=== PATIENT | female | born 1955 | race African-American/Black ===

== ENCOUNTER 2018-12-25 10:10 | Day surgery (SDC) | payer OTHER ==
[2018-12-23 15:10] VITALS: BMI 40.9
[~2018-12-25 10:10] MED LIST: ACETAMINOPHEN 325 MG TABLET (FP) PO PRN; CYCLOPENTOLATE HCL 1% OPHTH SOLN 2 ML BOTTLE OP SCH; KETOROLAC TROMETHAMINE 0.5% EYE DROP 1 DROP DROPS OP SCH; OFLOXACIN 0.3% OPHTHALMIC SOLUTION 5 ML BOTTLE OP SCH; PHENYLEPHRINE 2.5% OPHTH SOLN 15 ML BOTTLE OP SCH; TROPICAMIDE 1% OPHTH SOLN 15 ML BOTTLE OP SCH
[2018-12-25] MEDS ORDERED: CYCLOPENTOLATE HCL 1% OPHTH SOLN 2 ML BOTTLE ONE (11:03)
[2018-12-25] MEDS ORDERED: KETOROLAC TROMETHAMINE 0.5% EYE DROP 1 DROP DROPS ONE (11:03)
[2018-12-25] MEDS ORDERED: OFLOXACIN 0.3% OPHTHALMIC SOLUTION 5 ML BOTTLE ONE (11:03)
[2018-12-25] MEDS ORDERED: PHENYLEPHRINE 2.5% OPHTH SOLN 15 ML BOTTLE ONE (11:03)
[2018-12-25] MEDS ORDERED: TROPICAMIDE 1% OPHTH SOLN 15 ML BOTTLE ONE (11:03)
[2018-12-25] MEDS ORDERED: LIDOCAINE HCL/PF 2% SDV 5ML VIAL ONE (12:33)
[2018-12-25] MEDS ORDERED: PROPOFOL 20 ML ONE (12:49)
[2018-12-25] MEDS ORDERED: LIDOCAINE HCL/PF 2% SDV 5ML VIAL INF ONE (13:05)
[2018-12-25] MEDS ORDERED: POVIDONE-IODINE 5% OPHTHALMIC PREP 30 ML SOLUTION OD ONE (13:10)
[2018-12-25] MEDS ORDERED: BSS (NA/CA/MG/K) BALANCED SALT SOLUTION OPHTH SOLN 15 ML BOTTLE OD ONE (13:36)
[2018-12-25] MEDS ORDERED: LIDOCAINE HCL 1% PRESERVATIVE FREE - 30ML VIAL IO ONE ×2 (13:36)
[2018-12-25] MEDS ORDERED: EPINEPHrine/PF 1 MG/1 ML (1:1,000) AMPULE IO ONE (13:38)
[2018-12-25] MEDS ORDERED: TRYPAN BLUE 0.5 ML DISP.SYRIN IO ONE ×2 (13:38)
[2018-12-25] MEDS ORDERED: CHONDROITIN SU A/HYALUR SOD 1 KIT IO ONE (13:41)
[2018-12-25] MEDS ORDERED: BSS (NA/CA/MG/K) BALANCED SALT SOLUTION OPHTH SOLN 15 ML BOTTLE IO ONE (13:55)
[2018-12-25] MEDS ORDERED: VANCOMYCIN 500 MG VIAL (RESTRICTED TO ID ONLY) IVPB ONE (14:01)
[2018-12-25 14:52] VITALS: BP 153/95; PULSE 73; TEMP 98.7
--- NOTE | 2018-12-25 19:43 | OP ---
DATE OF OPERATION: 12/25/2018 PREOPERATIVE DIAGNOSIS: Cataract of right eye. ASSOCIATED DIAGNOSIS: Persistent myosis. POSTOPERATIVE DIAGNOSIS: Cataract of right eye. PROCEDURE: Phacoemulsification of right cataract with anterior capsule stainint with trypan blue, iris expansion with iris hooks, and posterior chamber intraocular lens implantation. LENS USED: [id number], 21.5 diopter power, serial number [id number]. ANESTHESIA: Peribulbar/modified van Lint/MAC. COMPLICATIONS: None. PROCEDURE: The patient was brought to the operating room and correctly identified along with the operative site and the correct intraocular lens aquino. She was then given a peribulbar block under sedation with 5 mL of 2% lidocaine, and 2 mL of the same lidocaine 2% was given as a modified van Lint eyelid block. The eye was then prepped and draped in the usual sterile fashion including 5% Betadine solution in the conjunctival sac and an eyelid drape. An eyelid speculum was then placed into the right eye. The pupil was inspected and noted to be approximately 4.5 mm. Paracentesis was created and beneath an air bubble the capsule was entered. The capsule was stained with Trypan blue. Trypan blue was irrigated and aspirated with lidocaine 1% preservative free approximately 0.5 mL. Viscoelastic was then injected to inflate the anterior chamber and as an attempt to dilate the pupil. The pupil however did not expand. The decision was then made to place iris hooks. Four additional paracentesis ports were created, and a temporal clear corneal wound was performed. Iris hooks were then used to expand the pupil in a maddie configuration. A continuous circular capsulorrhexis was performed. The nucleus was then hydro-dissected and removed with phacoemulsification via the [id number] approach. The remaining cortical material was irrigated and aspirated from the eye. Viscoelastic was injected to inflate the capsular bag, and the lens was then injected into the capsular bag. The iris hooks were then removed, and the Viscoelastic was irrigated and aspirated from the eye. At the end of the procedure, the intraocular lens was noted to be well centered and covered the anterior capsular border. All wounds were tested and found to be watertight after stromal hydration with BSS. No sutures were placed. Topical Vancomycin was given and the eye patched and shielded. The patient was then discharged from the operating room in stable condition. CARLTON PETERS M.D. [id number] MTDD
== END 2018-12-25 14:40 | disposition home or self-care (01) ==
LOC: JASU-SURG 10:10
PROVIDERS: ATTEND Ophthalmology
PROC: 08RJ3JZ Replacement of Right Lens with Synthetic Substitute, Percutaneous Approach (ICD-10-PCS; principal; 2018-12-25 12:00)
DX: H26.9 Unspecified cataract (principal); H57.03 Miosis

== ENCOUNTER 2019-03-05 08:00 | Inpatient (IN) | payer OTHER ==
[2019-03-03 13:35] VITALS: BMI 32.8
[2019-03-05 08:44] LABS: INR 1.05 (0.83-1.09); PROTHROMBIN TIME (PATIENT) 12.4 SEC (9.7-13.0)
[2019-03-05] MEDS ORDERED: CEFAZOLIN 2 GM in DEXTROSE 5%-WATER - 100 ML IVPB ONE (09:03)
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
[2019-03-05] MEDS ORDERED: fentaNYL CITRATE 250 MCG/5 ML VIAL ONE (09:52)
[2019-03-05] MEDS ORDERED: MIDAZOLAM HCL 2 MG/2 ML SINGLE DOSE VIAL ONE (09:53)
[2019-03-05] MEDS ORDERED: ceFAZolin SODIUM 1 GM VIAL IVPB ONE (10:20)
[2019-03-05] MEDS ORDERED: PROPOFOL 20 ML ONE ×2 (10:54)
[2019-03-05] MEDS ORDERED: LIDOCAINE HCL 2% 100 MG/5 ML DISP.SYRIN ONE (10:54)
[2019-03-05] MEDS ORDERED: NITROGLYCERIN 50 MG/10 ML VIAL IVPB ONE (10:54)
[2019-03-05] MEDS ORDERED: PHENYLEPHRINE HCL 10 MG/1 ML SINGLE DOSE VIAL ONE (10:55)
[2019-03-05] MEDS ORDERED: ceFAZolin SODIUM 1 GM VIAL ONE ×3 (10:55→21:27)
[2019-03-05] MEDS ORDERED: DEXAMETHASONE SOD PHOSPHATE 4 MG/1 ML VIAL ONE (10:55)
[2019-03-05] MEDS ORDERED: SODIUM CHLORIDE 0.9% P/F 10 ML VIAL IJ ONE (10:55)
[2019-03-05] MEDS ORDERED: HEPARIN NA (PORCINE) 5,000 UNITS/ML 1ML VIAL ONE (11:19)
[2019-03-05] MEDS ORDERED: POVIDONE-IODINE OINTMENT 10% - 28.4 GM TUBE ONE (12:14)
[2019-03-05] MEDS ORDERED: NEOSTIGMINE METHYLSULFATE 0.5 MG/ML - 10 ML MDV ONE (12:16)
[2019-03-05] MEDS ORDERED: GLYCOPYRROLATE 0.2 MG/1 ML VIAL ONE ×2 (12:17→12:18)
[2019-03-05] MEDS ORDERED: LABETALOL HCL 5 MG/1 ML (100MG/20 ML VIAL) ONE (12:21)
[2019-03-05] MEDS ORDERED: POVIDONE-IODINE OINTMENT 10% - 28.4 GM TUBE TP ONE (12:21)
--- NOTE | 2019-03-05 12:51 | OP ---
Operative Note - Note: Operative Date: 03/05/19 Pre-Operative Diagnosis: Right Carotid Stenosis Operation: Right Carotid Endarterectomy Findings: Large calcified plaque in right carotid bulb and proximal ICA. ICA diameter 3 mm Implants: Bovine pericardiaL patch Post-Operative Diagnosis: Same as Pre-op Surgeon: Jadon Chacon Preboarder: Diego Horne Anesthesiologist/PRISON PSYCHIATRIST: Jolie Jacobs Anesthesia: General Specimens Removed: Carotid plaque Estimated Blood Loss (mls): 50
[2019-03-05] MEDS ORDERED: ONDANSETRON 4 MG/2 ML VIAL IVPUSH PRN (12:56)
[2019-03-05] MEDS ORDERED: ACETAMINOPHEN 325 MG TABLET (FP) PO PRN (12:56)
[2019-03-05] MEDS ORDERED: HYDROmorphone HCl 2 MG/ML VIAL IVPB PRN (12:56)
--- NOTE | 2019-03-05 12:58 | SURG ---
Surgery Artificial Pearl Maker Note Artificial Pearl Maker: Diego Horne PA-C Date of Service: 03/05/19 Diagnosis: Right Carotid Stenosis Procedure: Right Carotid Endarterectomy; Bovine pericardial patch I was present for the entirety of the operative procedure. For further detail, please refer to operative report. Visit type - Case Type Case Type: Scheduled - New patient This patient is new to me today: Yes Date on this admission: 03/05/19
[2019-03-05] MEDS ORDERED: LACTATED RINGERS SOLUTION 1,000 ML IV SCH (13:00)
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
[2019-03-05] MEDS ORDERED: FLU VACCINE QUAD 60 MCG/0.5 ML (MDV 19-20) IM ONE (16:05)
[2019-03-05] MEDS: PHENYTOIN NA EXTENDED 100 MG CAPSULE (FP) PO SCH ×2 (16:47→21:32)
[2019-03-05] MEDS ORDERED: DEXTROSE 5%-WATER - 50 ML IVPB ONE ×2 (16:50→21:27)
[2019-03-05] MEDS: CEFAZOLIN 1 GM in DEXTROSE 5%-WATER - 50 ML IVPB SCH (17:47)
[2019-03-05] MEDS ORDERED: LACTATED RINGERS SOLUTION 1,000 ML/1,000 ML INFUS.BAG IV SCH (18:15)
[2019-03-05] MEDS: TOPIRAMATE 25 MG TABLET (FP) PO SCH (21:32)
[2019-03-05] MEDS: MONTELUKAST NA 10 MG TABLET PO SCH (21:32)
[2019-03-05] MEDS: PHENobarbital 30 MG TABLET PO SCH (21:32)
[2019-03-05] MEDS: oxyCODONE HCL 5 MG TABLET PO PRN (21:33)
[2019-03-06] MEDS: CEFAZOLIN 1 GM in DEXTROSE 5%-WATER - 50 ML IVPB SCH (01:06)
[2019-03-06] MEDS: PHENYTOIN NA EXTENDED 100 MG CAPSULE (FP) PO SCH ×3 (06:08→21:37)
--- NOTE | 2019-03-06 08:07 | PN ---
Progress Note (short form) - Note Progress Note: POD#1 Pt without any complaints this am. She tolerated her meds with clears yesterday. No difficulty swallowing. No CP/SOB. Voiding without difficulty. Vital Signs Period Temp Pulse Resp BP Sys/Dean Pulse Ox Last 24 Hr 97.4 F-98.0 F 61-83 12-23 87-119/51-72 98-100 GEN:A&0x3, NAD CV: RRR Lungs: CTA b/l Neck: dressing removed. Incision c/d/i with [place]. No evidence of a hematoma. Neck remains soft. RLE: No calf tenderness or swelling noted Neuro: tongue midline, smile symmetrical, 5/5 flexion/extention of UE b/l. 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 Moving RLE A/p: 63 yo female s/p R CEA, POD#1 Regular diet this am DVT ppx with lovenox SQ Continue statin, aspirin and begin plavix OOB to chair with assistance Spoke with Dr. Chacon and will plan for discharge, case d/w case managment. The pt has a home health aide and will needs assistance with transportation.
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
--- NOTE | 2019-03-06 09:18 | PN ---
Progress Note (short form) - Note Progress Note: Post op day#1.S/p Right carotidendarterectomy under [place] uneventful.P78,BP 91/57 and Spo2 97 on o2 2l.Patient stable.No any anesthesia related problem.Patient Dc from the anesthesia care.
[2019-03-06] MEDS ORDERED: PT OWN MED DRAWER 7, Y5N ONE (09:46)
[2019-03-06] MEDS: ASPIRIN 81 MG CHEWABLE TABLETS PO SCH (09:52)
[2019-03-06] MEDS: SOLIFENACIN SUCCINATE 5 MG TAB PO SCH (09:52)
[2019-03-06] MEDS: DULoxetine HCL 30 MG CAPSULE.DR PO SCH (09:52)
[2019-03-06] MEDS: CLOPIDOGREL BISULFATE 75 MG TABLET (FP) PO SCH (09:52)
[2019-03-06] MEDS: PHENobarbital 30 MG TABLET PO SCH ×2 (09:53→21:37)
[2019-03-06] MEDS: TOPIRAMATE 25 MG TABLET (FP) PO SCH ×2 (09:53→21:37)
[2019-03-06] MEDS: ENOXAPARIN NA (PORCINE) 40 MG/0.4 ML DISP.SYRIN SQ SCH (09:53)
[2019-03-06 09:54] LABS: HEMATOCRIT 35.1 % (32.4-45.2); HEMOGLOBIN 12.2 GM/dL (10.7-15.3); MCHC 34.8 g/dl (32.0-36.0); MEAN CELL VOLUME 86.1 fl (80-96); PLATELET COUNT 237 K/MM3 (134-434); RBC 4.08 M/mm3 (3.60-5.2); RDW 14.6 % (11.6-15.6); WHITE BLOOD COUNT 8.3 K/mm3 (4.0-10.0)
[2019-03-06] MEDS ORDERED: PATIENT'S OWN MEDICATION (NON-FORMULARY) (Linaclotide [Linzess] 72 MCG) PO SCH (10:00)
[2019-03-06 10:16] LABS: BLOOD UREA NITROGEN 9.6 mg/dL (7-18); CALCIUM 8.6 mg/dL (8.5-10.1); CREATININE 0.7 mg/dL (0.55-1.3); MAGNESIUM 1.9 mg/dL (1.8-2.4); PHOSPHOROUS 3.7 mg/dL (2.5-4.9); POTASSIUM 3.8 mmol/L (3.5-5.1)
--- NOTE | 2019-03-06 11:45 | PN ---
Teaching Attending Note Name of Resident: Jayden Hunter ATTENDING PHYSICIAN STATEMENT I saw and evaluated the patient. I reviewed the resident's note and discussed the case with the resident. I agree with the resident's findings and plan as documented. SUBJECTIVE: Pt seen and examined in the ICU. s/p R CEA. Denies pain, headache, shortness of breath or chest pain. OBJECTIVE: Vital Signs Period Temp Pulse Resp BP Sys/Dean Pulse Ox Last 24 Hr 97.4 F-98.0 F 61-77 12-23 87-114/51-65 98-100 Intake & Output 03/03/19 03/04/19 03/05/19 03/06/19 23:59 23:59 23:59 23:59 Intake Total 3862.5 450 Output Total 50 Balance 3812.5 450 Weight 90.718 kg Gen: NAD at rest Heart: RRR Lung: decreased breath sounds at the bases Abd: soft, nontender Ext: no edema CBC, BMP 03/06/19 09:15 03/06/19 09:15 Active Medications Acetaminophen (Tylenol -) 325 mg PO Q4H PRN PRN Reason: PAIN LEVEL 1-5 Last Admin: 03/05/19 21:32 Dose: 325 mg Aspirin (Asa -) 81 mg PO DAILY [facility] Last Admin: 03/06/19 09:52 Dose: 81 mg Atorvastatin Calcium (Lipitor -) 10 mg PO HS [facility] Clopidogrel Bisulfate (Plavix -) 75 mg PO DAILY [facility] Last Admin: 03/06/19 09:52 Dose: 75 mg Duloxetine HCl (Cymbalta -) 30 mg PO DAILY [facility] Last Admin: 03/06/19 09:52 Dose: 30 mg Enoxaparin Sodium (Lovenox -) 40 mg SQ DAILY [facility] Last Admin: 03/06/19 09:53 Dose: 40 mg Melatonin (Melatonin) 5 mg PO HS [facility] Montelukast Sodium (Singulair -) 10 mg PO HS [facility] Last Admin: 03/05/19 21:32 Dose: 10 mg Non-Formulary Medication (Linaclotide [Linzess]) 72 mcg PO DAILY [facility] Ondansetron HCl (Zofran Injection) 4 mg IVPUSH Q6H PRN PRN Reason: NAUSEA AND/OR VOMITING Oxycodone HCl (Roxicodone -) 5 mg PO Q4H PRN PRN Reason: PAIN LEVEL 1-5 Last Admin: 03/05/19 21:33 Dose: 5 mg Phenobarbital (Phenobarbital -) 60 mg PO BID [facility] Last Admin: 03/06/19 09:53 Dose: 60 mg Phenytoin Sodium (Dilantin -) 100 mg PO TID [facility] Last Admin: 03/06/19 06:08 Dose: 100 mg Prednisolone Acetate (Pred Forte 1% -) 74.9625 drop OD BID [facility] Solifenacin (Vesicare -) 5 mg PO DAILY [facility] Last Admin: 03/06/19 09:52 Dose: 5 mg Topiramate (Topamax -) 50 mg PO BID [facility] Last Admin: 03/06/19 09:53 Dose: 50 mg Varenicline (Chantix -) 1 mg PO PRN [facility] ASSESSMENT AND PLAN: Right Carotid Stenosis s/p R CEA Hyperlipidemia Seizure Disorder Smoker h/o L AKA - pain control - ASA, plavix - continue home meds - PO as tolerated - smoking cessation - DVT prophylaxis - d/c planning
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
[2019-03-06] MEDS ORDERED: DOCUSATE SODIUM 100 MG CAPSULE (FP) PO ONE (17:58)
[2019-03-06] MEDS: oxyCODONE HCL 5 MG TABLET PO PRN (21:36)
[2019-03-06] MEDS: MONTELUKAST NA 10 MG TABLET PO SCH (21:37)
[2019-03-06] MEDS ORDERED: MELATONIN 5 MG TABLETS PO SCH (22:00)
[2019-03-06] MEDS ORDERED: ATORVASTATIN CA 10 MG TABLET (FP) PO SCH (22:00)
[2019-03-07] MEDS: PHENYTOIN NA EXTENDED 100 MG CAPSULE (FP) PO SCH (05:51)
--- NOTE | 2019-03-07 07:54 | DS ---
Physical Exam: SUBJECTIVE: Patient seen and examined this am. She tolerated a regular diet, no nausea or emesis. The patient is passing flatus, no bm. She has a history of constipation and takes Linzess 1 to 2 times per week. She was given a stool softners last pm and wishes to wait until she gets home to take her own medication. OBJECTIVE: Vital Signs Temperature 98.5 F 03/07/19 04:14 Pulse Rate 69 03/07/19 06:14 Respiratory Rate 17 03/07/19 06:14 Blood Pressure 107/69 03/07/19 06:14 O2 Sat by Pulse Oximetry (%) 100 03/06/19 20:34 PHYSICAL EXAM GENERAL: The patient is awake, alert, and fully oriented, in no acute distress. NECK: Trachea midline, supple, inc c/d/i with sydney. No hematoma noted. LUNGS: Breath sounds equal. HEART: Regular rate and rhythm. ABDOMEN: Soft, mild LLQ tenderness, nondistended, no guarding, no rebound. RLE: no edema/Normal speech, gait not observed. NEUROLOGICAL: MAEx3 LABS CBC,CMP WBC 8.3 K/mm3 (4.0-10.0) 03/06/19 09:15 RBC 4.08 M/mm3 (3.60-5.2) 03/06/19 09:15 Hgb 12.2 GM/dL (10.7-15.3) 03/06/19 09:15 Hct 35.1 % (32.4-45.2) D 03/06/19 09:15 MCV 86.1 fl (80-96) 03/06/19 09:15 MCH 30.0 pg (25.7-33.7) 03/06/19 09:15 MCHC 34.8 g/dl (32.0-36.0) 03/06/19 09:15 RDW 14.6 % (11.6-15.6) 03/06/19 09:15 Plt Count 237 K/MM3 (134-434) 03/06/19 09:15 MPV 9.0 fl (7.5-11.1) 03/06/19 09:15 Sodium 141 mmol/L (136-145) 03/06/19 09:15 Potassium 3.8 mmol/L (3.5-5.1) 03/06/19 09:15 Chloride 107 mmol/L (98-107) 03/06/19 09:15 Carbon Dioxide 28 mmol/L (21-32) 03/06/19 09:15 Anion Gap 6 MMOL/L (8-16) L 03/06/19 09:15 BUN 9.6 mg/dL (7-18) 03/06/19 09:15 Creatinine 0.7 mg/dL (0.55-1.3) 03/06/19 09:15 Est GFR (CKD-EPI)AfAm 106.87 03/06/19 09:15 Est GFR (CKD-EPI)NonAf 92.21 03/06/19 09:15 Random Glucose 92 mg/dL (74-106) 03/06/19 09:15 Calcium 8.6 mg/dL (8.5-10.1) 03/06/19 09:15 Phosphorus 3.7 mg/dL (2.5-4.9) 03/06/19 09:15 Magnesium 1.9 mg/dL (1.8-2.4) 03/06/19 09:15 HOSPITAL COURSE: The patient was admitted to the ICU post-operatively for observation. Her hospital course was uneventful. POD#1 she tolerated a diet, no difficulty with swallowing. Her incisions remained dry and intact. She was voiding on her own and had no neurological deficits. She was seen by cardiology who recommend routine post-op care. She was stable for discharge but had issues with restating her home health aide and was therefore discharge to home on POD# 2. Date of Admission:03/05/19 Date of Discharge: 03/07/19 Minutes to complete discharge: 20 Visit type - Case Type Case Type: Scheduled - Emergency Emergency Visit: No - New patient This patient is new to me today: No
[2019-03-07 08:01] VITALS: TEMP 98.6
[2019-03-07] MEDS: TOPIRAMATE 25 MG TABLET (FP) PO SCH (09:17)
[2019-03-07] MEDS: CLOPIDOGREL BISULFATE 75 MG TABLET (FP) PO SCH (09:17)
[2019-03-07] MEDS: PHENobarbital 30 MG TABLET PO SCH (09:17)
[2019-03-07] MEDS: ASPIRIN 81 MG CHEWABLE TABLETS PO SCH (09:18)
[2019-03-07] MEDS: ENOXAPARIN NA (PORCINE) 40 MG/0.4 ML DISP.SYRIN SQ SCH (09:18)
[2019-03-07] MEDS: DULoxetine HCL 30 MG CAPSULE.DR PO SCH (09:18)
[2019-03-07] MEDS ORDERED: PT OWN MED DRAWER 7, Y5N ONE (09:25)
[2019-03-07] MEDS: SOLIFENACIN SUCCINATE 5 MG TAB PO SCH (09:26)
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
[2019-03-07] MEDS ORDERED: prednisoLONE ACETATE 1% OPHTH SUSP 5 ML BOTTLE OD SCH (10:00)
[2019-03-07] MEDS ORDERED: VARENICLINE TARTRATE 1 MG TAB PO SCH (10:00)
[2019-03-07 11:59] VITALS: BP 116/68; PULSE 69
--- NOTE | 2019-03-07 12:09 | PN ---
Teaching Attending Note Name of Resident: Jonathan Mabry ATTENDING PHYSICIAN STATEMENT I saw and evaluated the patient. I reviewed the resident's note and discussed the case with the resident. I agree with the resident's findings and plan as documented. SUBJECTIVE: Patient seen and examined in the ICU. POD #1 s/p R CEA. Denies pain, headache, shortness of breath or chest pain. OBJECTIVE: Intake & Output 03/04/19 03/05/19 03/06/19 03/07/19 23:59 23:59 23:59 23:59 Intake Total 3862.5 1385 100 Output Total 50 500 Balance 3812.5 885 100 Weight 200 lb Last Vital Signs Temp Pulse Resp BP Pulse Ox 98.6 F 69 18 116/68 100 03/07/19 07:35 03/07/19 11:00 03/07/19 11:00 03/07/19 11:00 03/07/19 07:35 Active Medications Acetaminophen (Tylenol -) 325 mg PO Q4H PRN PRN Reason: PAIN LEVEL 1-5 Last Admin: 03/05/19 21:32 Dose: 325 mg Aspirin (Asa -) 81 mg PO DAILY [facility] Last Admin: 03/07/19 09:18 Dose: 81 mg Atorvastatin Calcium (Lipitor -) 10 mg PO HS [facility] Last Admin: 03/06/19 21:37 Dose: 10 mg Clopidogrel Bisulfate (Plavix -) 75 mg PO DAILY [facility] Last Admin: 03/07/19 09:17 Dose: 75 mg Duloxetine HCl (Cymbalta -) 30 mg PO DAILY [facility] Last Admin: 03/07/19 09:18 Dose: 30 mg Enoxaparin Sodium (Lovenox -) 40 mg SQ DAILY [facility] Last Admin: 03/07/19 09:18 Dose: 40 mg Melatonin (Melatonin) 5 mg PO HS [facility] Last Admin: 03/06/19 21:37 Dose: 5 mg Montelukast Sodium (Singulair -) 10 mg PO HS [facility] Last Admin: 03/06/19 21:37 Dose: 10 mg Non-Formulary Medication (Linaclotide [Linzess]) 72 mcg PO DAILY [facility] Ondansetron HCl (Zofran Injection) 4 mg IVPUSH Q6H PRN PRN Reason: NAUSEA AND/OR VOMITING Oxycodone HCl (Roxicodone -) 5 mg PO Q4H PRN PRN Reason: PAIN LEVEL 1-5 Last Admin: 03/06/19 21:36 Dose: 5 mg Phenobarbital (Phenobarbital -) 60 mg PO BID [facility] Last Admin: 03/07/19 09:17 Dose: 60 mg Phenytoin Sodium (Dilantin -) 100 mg PO TID [facility] Last Admin: 03/07/19 05:51 Dose: 100 mg Prednisolone Acetate (Pred Forte 1% -) 1 drop OD QID [facility] Last Admin: 03/07/19 09:24 Dose: 1 drop Solifenacin (Vesicare -) 5 mg PO DAILY [facility] Last Admin: 03/07/19 09:26 Dose: 5 mg Topiramate (Topamax -) 50 mg PO BID [facility] Last Admin: 03/07/19 09:17 Dose: 50 mg Varenicline (Chantix -) 1 mg PO BID [facility] Last Admin: 03/07/19 09:27 Dose: 1 mg Gen: NAD at rest Heart: RRR Lung: decreased breath sounds at the bases Abd: soft, nontender Ext: no edema ASSESSMENT AND PLAN: Right Carotid Stenosis POD #1 R CEA Hyperlipidemia Seizure Disorder Smoker h/o L AKA - pain control - ASA, plavix - continue home meds - DC planning Dr Sheppard
--- NOTE | 2019-03-07 16:56 | PATH ---
Surgical Pathology Report Patient Name: JESSICA KLINE [facility]. Rec. 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 Specimen(s) Received PLAQUE Clinical History Carotid stenosis Final Diagnosis PLAQUE, REMOVAL: CALCIFIED ATHEROMATOUS PLAQUE. Electronically Signed Treasure Rnig M.D. Gross Description Received in formalin labeled "plaque," is a 3.0 x 1.4 x 0.8 cm grove-yellow, calcified portion of plaque. Electrical Software Engineer sections are submitted in one cassette, following decalcification. /03/06/201903/06/2019
--- NOTE | 2019-03-10 23:33 | OP ---
DATE OF OPERATION: 03/05/2019 SURGEON: Jadon Chacon M.D. FLEXOGRAPHIC PRINTING MACHINIST: Candido Oliva PROCEDURE: Right carotid endarterectomy. PREOPERATIVE DIAGNOSIS: Right carotid stenosis. POSTOPERATIVE DIAGNOSIS: Right carotid stenosis. ANESTHESIA: General anesthesia. ANESTHESIOLOGIST: Jolie Jacobs M.D. OPERATIVE FINDINGS: There was large calcified plaque in the right carotid bulb and proximal internal carotid artery at the approximately 80% stenosis. OPERATIVE PROCEDURE: Following routine patient identification with side and site verification, general anesthesia was induced. The right neck and chest were prepped with ChloraPrep. Timeout was performed. Skin incision was made along anterior border of the right sternocleidomastoid, deepened through subcutaneous tissue and platysmal layer with cautery. The anterior border of the sternocleidomastoid was freed with cautery, and the muscles retracted laterally. The internal jugular vein was dissected along its anterior border. Side branches were ligated with silk ties and the vein was retracted laterally. The common carotid artery was mobilized to the base of the incision and secured with an umbilical tape. Distal dissection to allow identification of the carotid bifurcation. The external carotid artery was mobilized and secured with a Vesseloop. The internal was then exposed to a point distal to atherosclerotic disease. The hypoglossal nerve was identified. Crossing vessels were ligated and divided, and the nerve was elevated superiorly. The patient was systemically heparinized. The distal internal carotid artery was then secured with a Vesseloop. The internal, external common carotid arteries were then occluded with a Vesseloop and vascular clamp. Arteriotomy was made in the common extending into the internal, to a point distal to atherosclerotic plaque. Backbleeding from the distal internal carotid artery was pulsatile, and no shunt was employed. Endarterectomy was performed with removal of plaque from the common internal and external branches. Loose media fibers were removed. The distal intima was adherent and did not require tacking sutures. The arteriotomy was then closed with a bovine pericardial patch which was sutured to the arterial edouard using running 6-0 Prolene suture. Prior to placement of the suture line, the artery was allowed to back bleed and flush and was filled with heparin solution . Suture line was completed and flow was then restored first to the external carotid and then in the internal carotid. Evaluation of the handheld Doppler revealed good flow in all branches with no evidence of technical defects. Surgicel was applied to control bleeding. When hemostasis was adequate, the wound was irrigated and closed with interrupted suture of 3-0 Vicryl in subcutaneous tissues and skin with sydney. Sterile dressing was applied, and the patient was taken to the recovery room in stable condition. JADON CHACON M.D. [id number] MTDD
== END 2019-03-07 12:35 | disposition home or self-care (01) | DRG 24 ==
LOC: JSAMEDAYSX 09:00 → JICU 15:20
PROVIDERS: ADMIT Surgery; ATTEND Surgery
PROC: 03CM0ZZ Extirpation of Matter from Right External Carotid Artery, Open Approach (ICD-10-PCS; 2019-03-05)
PROC: 03UM0JZ Supplement Right External Carotid Artery with Synthetic Substitute, Open Approach (ICD-10-PCS; 2019-03-05)
PROC: 03CK0ZZ Extirpation of Matter from Right Internal Carotid Artery, Open Approach (ICD-10-PCS; principal; 2019-03-05 09:00)
DX: I65.21 Occlusion and stenosis of right carotid artery (principal); E78.5 Hyperlipidemia, unspecified; F32.9 Major depressive disorder, single episode, unspecified; K58.9 Irritable bowel syndrome, unspecified; G40.909 Epilepsy, unspecified, not intractable, without status epilepticus; I73.9 Peripheral vascular disease, unspecified; F17.210 Nicotine dependence, cigarettes, uncomplicated; Z89.612 Acquired absence of left leg above knee
CPT/HCPCS: 36415; 80048; 83735; 84100; 85027; 85610; 86850; 86900; 86901; 88304-TC; 88311-TC; 94010; 94760; J1644; Q2036

== ENCOUNTER 2019-04-22 10:27 | Emergency (ER) | payer OTHER ==
[2019-04-22 10:36] VITALS: BP 150/87; PULSE 92; TEMP 98.7; BMI 39.3
== END 2019-04-22 11:00 | disposition left against medical advice (07) ==
LOC: JERFT 10:27 → JER 10:27 → JERFT 11:00
DX: Z53.21 Procedure and treatment not carried out due to patient leaving prior to being seen by health care provider (principal)
CPT/HCPCS: 99281-25

== ENCOUNTER 2022-07-05 13:09 | Inpatient (IN) | payer OTHER ==
[2022-07-05 13:57] VITALS: BMI 41.5
[2022-07-05] MEDS ORDERED: ACETAMINOPHEN 500 MG TABLET (FP) PO ONE (14:40)
[2022-07-05] MEDS ORDERED: LIDOCAINE 5% TOPICAL PATCH TP ONE (14:40)
[2022-07-05] MEDS ORDERED: LIDOCAINE 5% TOPICAL PATCH ONE ×2 (15:22→15:37)
[2022-07-05] MEDS ORDERED: ACETAMINOPHEN 325 MG TABLET (FP) ONE (15:22)
[2022-07-05] MEDS ORDERED: morphine SULFATE 4 MG/ML VIAL IVPUSH ONE (16:37)
[2022-07-05] MEDS ORDERED: SODIUM CHLORIDE 0.9% 500 ML INFUS.BAG IV ONE (16:37)
[2022-07-05] MEDS ORDERED: morphine SULFATE 4 MG/ML VIAL ONE (17:09)
[2022-07-05 17:35] LABS: BASO % 0.9 % (0-2.0); EOS % 2.5 % (0-4.5); HEMATOCRIT 39.1 % (32.4-45.2); HEMOGLOBIN 13.6 GM/dL (10.7-15.3); LYMPH % 51.5 % (8-40); MCH 30.8 pg (25.7-33.7); MCHC 34.9 g/dl (32.0-36.0); MEAN CELL VOLUME 88.3 fl (80-96); MONO % 8.1 % (3.8-10.2); PLATELET COUNT 286 10^3/uL (134-434); RBC 4.43 M/mm3 (3.60-5.2); RDW 15.6 % (11.6-15.6); WHITE BLOOD COUNT 8.3 K/mm3 (4.0-10.0)
[2022-07-05 17:57] LABS: ALBUMIN 3.5 g/dl (3.4-5.0); CALCIUM 9.2 mg/dL (8.5-10.1)
[2022-07-05 18:00] LABS: CREATININE 0.6 mg/dL (0.55-1.3)
[2022-07-05 18:01] LABS: BILIRUBIN,TOTAL 0.2 mg/dL (0.2-1); TOT PROT 6.9 g/dl (6.4-8.2)
[2022-07-05 20:14] LABS: INR 1.08 (0.83-1.09); PROTHROMBIN TIME (PATIENT) 12.5 SEC (9.7-13.0)
[2022-07-05 20:17] LABS: ACTIVATED PTT 31.8 SECONDS (25.2-36.5)
[2022-07-05] MEDS ORDERED: LIDOCAINE PATCH REMOVAL MC ONE (22:00)
[2022-07-05] MEDS: TOPIRAMATE 25 MG TABLET PO SCH (22:00)
[2022-07-05] MEDS: MONTELUKAST NA 10 MG TABLET PO SCH (22:42)
[2022-07-05] MEDS: PHENobarbital 30 MG TABLET PO SCH (22:43)
[2022-07-05] MEDS: ATORVASTATIN CA 40 MG TABLET (FP) PO SCH (22:43)
[2022-07-05 23:59] LABS: ARTERIAL BLD GAS O2 SATURATION 90.4 % (95-98); ARTERIAL BLOOD GAS BASE EXCESS -2.2 mmol/L (-2-2); ARTERIAL BLOOD GAS PO2 63.1 mmHg (80-100); ARTERIAL BLOOD GAS pH 7.324 (7.350-7.450)
[2022-07-06 00:01] LABS: ALLENS TEST POSITIVE
[2022-07-06] MEDS: ACETAMINOPHEN 1000 MG/100 ML BAG IVPB PRN ×2 (07:57→13:41)
[2022-07-06 09:23] LABS: HEMATOCRIT 37.5 % (32.4-45.2); MCH 30.8 pg (25.7-33.7); MCHC 34.7 g/dl (32.0-36.0); MEAN CELL VOLUME 88.7 fl (80-96); MEAN PLT VOLUME 9.2 fl (7.5-11.1); PLATELET COUNT 275 10^3/uL (134-434); RBC 4.22 M/mm3 (3.60-5.2); RDW 16.4 % (11.6-15.6); WHITE BLOOD COUNT 6.5 K/mm3 (4.0-10.0)
[2022-07-06 09:28] LABS: INR 1.08 (0.83-1.09); PROTHROMBIN TIME (PATIENT) 12.5 SEC (9.7-13.0)
[2022-07-06 09:31] LABS: ACTIVATED PTT 32.4 SECONDS (25.2-36.5)
[2022-07-06] MEDS: PHENobarbital 30 MG TABLET PO SCH ×2 (09:43→21:03)
[2022-07-06] MEDS: DULoxetine HCL 30 MG CAPSULE.DR PO SCH (09:43)
[2022-07-06] MEDS: TOPIRAMATE 25 MG TABLET PO SCH ×2 (09:44→21:03)
[2022-07-06] MEDS: NICOTINE 21 MG/24 HOURS TOPICAL PATCH TD SCH (09:44)
[2022-07-06 09:50] LABS: BLOOD UREA NITROGEN 9.4 mg/dL (7-18); CALCIUM 8.8 mg/dL (8.5-10.1)
[2022-07-06 09:53] LABS: CREATININE 0.6 mg/dL (0.55-1.3)
[2022-07-06] MEDS ORDERED: SOLIFENACIN SUCCINATE 5 MG TAB PO SCH (10:00)
[2022-07-06] MEDS ORDERED: PHENYTOIN NA EXTENDED 100 MG CAPSULE (FP) PO SCH (10:00)
[2022-07-06] MEDS: LIDOCAINE 5% TOPICAL PATCH TP SCH (17:04)
[2022-07-06] MEDS: PHENYTOIN NA EXTENDED 100 MG CAPSULE (FP) PO SCH (21:02)
[2022-07-06] MEDS: ATORVASTATIN CA 40 MG TABLET (FP) PO SCH (21:03)
[2022-07-06] MEDS: LIDOCAINE PATCH REMOVAL MC SCH (21:03)
[2022-07-06] MEDS: MONTELUKAST NA 10 MG TABLET PO SCH (21:03)
[2022-07-07] MEDS: IBUPROFEN 400 MG TABLET (FP) PO PRN (05:20)
[2022-07-07] MEDS: PHENYTOIN NA EXTENDED 100 MG CAPSULE (FP) PO SCH ×2 (09:49→21:29)
[2022-07-07] MEDS: DULoxetine HCL 30 MG CAPSULE.DR PO SCH (09:50)
[2022-07-07] MEDS: LIDOCAINE 5% TOPICAL PATCH TP SCH (09:51)
[2022-07-07] MEDS: PHENobarbital 30 MG TABLET PO SCH ×2 (09:54→21:30)
[2022-07-07] MEDS: NICOTINE 21 MG/24 HOURS TOPICAL PATCH TD SCH (09:54)
[2022-07-07] MEDS: TOPIRAMATE 25 MG TABLET PO SCH ×2 (09:55→21:29)
[2022-07-07] MEDS ORDERED: TAMSULOSIN HCL 0.4 MG CAP PO ONE (15:48)
[2022-07-07] MEDS: ACETAMINOPHEN 500 MG TABLET (FP) PO PRN (19:57)
[2022-07-07] MEDS: ATORVASTATIN CA 40 MG TABLET (FP) PO SCH (21:29)
[2022-07-07] MEDS: LIDOCAINE PATCH REMOVAL MC SCH (21:30)
[2022-07-07] MEDS: MONTELUKAST NA 10 MG TABLET PO SCH (21:30)
[2022-07-08] MEDS: IBUPROFEN 400 MG TABLET (FP) PO PRN ×2 (01:10→12:40)
[2022-07-08] MEDS ORDERED: POLYETHYLENE GLYCOL (HEALTHYLAX) 3350 17 GM PACKET PO ONE (05:45)
[2022-07-08] MEDS ORDERED: TAMSULOSIN HCL 0.4 MG CAP PO SCH (08:30)
[2022-07-08] MEDS: TAMSULOSIN HCL 0.4 MG CAP PO SCH (09:03)
[2022-07-08] MEDS: TOPIRAMATE 25 MG TABLET PO SCH ×2 (09:03→21:44)
[2022-07-08] MEDS: ACETAMINOPHEN 500 MG TABLET (FP) PO PRN (09:03)
[2022-07-08] MEDS: PHENobarbital 30 MG TABLET PO SCH ×2 (09:04→21:45)
[2022-07-08] MEDS: LIDOCAINE 5% TOPICAL PATCH TP SCH (09:05)
[2022-07-08] MEDS: DULoxetine HCL 30 MG CAPSULE.DR PO SCH (09:05)
[2022-07-08] MEDS: PHENYTOIN NA EXTENDED 100 MG CAPSULE (FP) PO SCH ×2 (09:05→21:49)
[2022-07-08] MEDS: NICOTINE 21 MG/24 HOURS TOPICAL PATCH TD SCH (09:06)
[2022-07-08] MEDS: ATORVASTATIN CA 40 MG TABLET (FP) PO SCH (21:44)
[2022-07-08] MEDS: MONTELUKAST NA 10 MG TABLET PO SCH (21:45)
[2022-07-08] MEDS: LIDOCAINE PATCH REMOVAL MC SCH (23:15)
[2022-07-09] MEDS: TAMSULOSIN HCL 0.4 MG CAP PO SCH (08:29)
[2022-07-09] MEDS: LIDOCAINE 5% TOPICAL PATCH TP SCH (10:04)
[2022-07-09] MEDS: ACETAMINOPHEN 500 MG TABLET (FP) PO PRN ×2 (10:04→18:28)
[2022-07-09] MEDS: NICOTINE 21 MG/24 HOURS TOPICAL PATCH TD SCH (10:04)
[2022-07-09] MEDS: DULoxetine HCL 30 MG CAPSULE.DR PO SCH (10:05)
[2022-07-09] MEDS: TOPIRAMATE 25 MG TABLET PO SCH ×2 (10:05→21:34)
[2022-07-09] MEDS: PHENobarbital 30 MG TABLET PO SCH ×2 (10:05→21:34)
[2022-07-09] MEDS: PHENYTOIN NA EXTENDED 100 MG CAPSULE (FP) PO SCH ×2 (10:05→21:33)
[2022-07-09] MEDS: ATORVASTATIN CA 40 MG TABLET (FP) PO SCH (21:33)
[2022-07-09] MEDS: POLYETHYLENE GLYCOL (HEALTHYLAX) 3350 17 GM PACKET PO SCH (21:34)
[2022-07-09] MEDS: DOCUSATE SODIUM 100 MG CAPSULE (FP) PO SCH (21:34)
[2022-07-09] MEDS: MONTELUKAST NA 10 MG TABLET PO SCH (21:34)
[2022-07-09] MEDS: SENNOSIDES 8.6MG TABLET (FP) PO SCH (21:34)
[2022-07-10] MEDS: IBUPROFEN 400 MG TABLET (FP) PO PRN ×3 (01:03→19:56)
[2022-07-10] MEDS: LIDOCAINE PATCH REMOVAL MC SCH ×2 (04:43→23:26)
[2022-07-10] MEDS: ACETAMINOPHEN 500 MG TABLET (FP) PO PRN ×2 (05:01→14:45)
[2022-07-10] MEDS: DOCUSATE SODIUM 100 MG CAPSULE (FP) PO SCH ×3 (05:01→23:24)
[2022-07-10] MEDS: TAMSULOSIN HCL 0.4 MG CAP PO SCH (08:19)
[2022-07-10] MEDS: LIDOCAINE 5% TOPICAL PATCH TP SCH (10:07)
[2022-07-10] MEDS: POLYETHYLENE GLYCOL (HEALTHYLAX) 3350 17 GM PACKET PO SCH ×2 (10:08→23:25)
[2022-07-10] MEDS: PHENYTOIN NA EXTENDED 100 MG CAPSULE (FP) PO SCH (10:09)
[2022-07-10] MEDS: SENNOSIDES 8.6MG TABLET (FP) PO SCH ×2 (10:13→23:24)
[2022-07-10] MEDS: DULoxetine HCL 30 MG CAPSULE.DR PO SCH (10:13)
[2022-07-10] MEDS: PHENobarbital 30 MG TABLET PO SCH ×2 (10:13→23:25)
[2022-07-10] MEDS: TOPIRAMATE 25 MG TABLET PO SCH (10:14)
[2022-07-10] MEDS: NICOTINE 21 MG/24 HOURS TOPICAL PATCH TD SCH (10:15)
[2022-07-10] MEDS: MONTELUKAST NA 10 MG TABLET PO SCH (23:24)
[2022-07-10] MEDS: ATORVASTATIN CA 40 MG TABLET (FP) PO SCH (23:24)
[2022-07-11] MEDS: PHENYTOIN NA EXTENDED 100 MG CAPSULE (FP) PO SCH ×2 (00:04→10:17)
[2022-07-11] MEDS: TOPIRAMATE 25 MG TABLET PO SCH ×2 (00:04→10:18)
[2022-07-11] MEDS: ACETAMINOPHEN 500 MG TABLET (FP) PO PRN (01:45)
[2022-07-11] MEDS: DOCUSATE SODIUM 100 MG CAPSULE (FP) PO SCH ×2 (06:54→13:04)
[2022-07-11] MEDS: IBUPROFEN 400 MG TABLET (FP) PO PRN ×2 (06:54→14:25)
[2022-07-11] MEDS: TAMSULOSIN HCL 0.4 MG CAP PO SCH (08:22)
[2022-07-11] MEDS: LIDOCAINE 5% TOPICAL PATCH TP SCH (10:10)
[2022-07-11] MEDS: NICOTINE 21 MG/24 HOURS TOPICAL PATCH TD SCH (10:10)
[2022-07-11] MEDS: DULoxetine HCL 30 MG CAPSULE.DR PO SCH (10:16)
[2022-07-11] MEDS: PHENobarbital 30 MG TABLET PO SCH (10:17)
[2022-07-11] MEDS: SENNOSIDES 8.6MG TABLET (FP) PO SCH (10:17)
[2022-07-11] MEDS: POLYETHYLENE GLYCOL (HEALTHYLAX) 3350 17 GM PACKET PO SCH (10:17)
[2022-07-11 17:34] VITALS: BP 123/70; PULSE 77; RESP 18; TEMP 97.7
[2022-07-11] MEDS ORDERED: ENOXAPARIN NA (PORCINE) 40 MG/0.4 ML DISP.SYRIN SQ SCH (18:00)
== END 2022-07-11 19:10 | DRG 543 ==
LOC: JER 13:09 → JERBED 17:12 → J7W 20:50
PROVIDERS: ADMIT Internal Medicine; ATTEND Internal Medicine
DX: M84.40XA Pathological fracture, unspecified site, initial encounter for fracture (principal); Z68.41 Body mass index [BMI] 40.0-44.9, adult; S70.01XA Contusion of right hip, initial encounter; Z89.612 Acquired absence of left leg above knee; R56.9 Unspecified convulsions; I10 Essential (primary) hypertension; E78.5 Hyperlipidemia, unspecified; F17.210 Nicotine dependence, cigarettes, uncomplicated; E66.01 Morbid (severe) obesity due to excess calories; R33.9 Retention of urine, unspecified; W19.XXXA Unspecified fall, initial encounter; Y93.9 Activity, unspecified; Y92.89 Other specified places as the place of occurrence of the external cause; Y99.9 Unspecified external cause status; F32.A Depression, unspecified
CPT/HCPCS: 0241U-QW; 36415; 36600; 70450-TC; 72125-TC; 72128-TC; 72170-TC-FY; 72192-TC; 73030-TC-RT-FY; 73110-TC-RT-FY; 73130-TC-RT-FY; 73502-TC-RT-FY; 80048; 80053; 82803; 85025; 85027; 85610; 85730; 86850; 86900; 86901; 93005; 93010; 93880-TC; 97162-GP; 99285-25; C9803-CS; U0003; U0005